=== PATIENT | female | born 1980 | race Caucasian/White ===

== ENCOUNTER 2023-09-02 09:10 | Emergency (ER) | payer OTHER, SELFPAY ==
[2023-09-02 09:12] VITALS: BP 133/99
--- NOTE | 2023-09-02 10:05 | ED.GENMED ---
History of Present Illness
General
Chief Complaint: Musculo-Skeletal Complaint
Source: patient
Exam Limitations: none
Time Seen by Provider: 09/02/23 09:29
Nursing documentation reviewed up to this point in time: agreed with
Travel History
Have you had any contact with someone who has COVID-19?: No
Do you have any symptoms of coronavirus? Fever > 100 degrees, chills, cough, shortness of breath, sore throat, loss of taste or smell, muscle aches, or headache?: No
History of Present Illness
History of Present Illness:
42 y/o F with h/o R shoulder pain that was yesteday when she woke up
she says she fell 2 mo ago and had pain with limited ROM for a day or two which resolved completely
spontaneously yesterday am she started with pain and limited painful ROM. throughout the day th epain got progressively worse
pt didn't sleep last night becuase of th epain
she took motrin 200 mg at 6 am today. she has not had any relief
the pain is mostly in the shoulder but sometimes radiates to RUE
she has no joão any swelling, numbness/tingling/color change, weakness
no cp, sob
no repetitve use or lifting injuries.
r hand dominant
Past History
Past History
ED Past Medical History: Other (pelvic congestion syndrome)
Social History
Tobacco: Non-smoker
Alcohol: None
Drug: None
Personal:
Living: with family
Review of Systems
Review of Systems
Allergies reviewed?: Yes
All Other Systems: Not applicable
Phy Exam
Physical Exam
Physical Exam:
GENERAL: Alert , in no apparent distress, comfortable at rest
HEAD: NCAT
CV lungs and heart clear
NEUROLOGICAL: Alert and oriented, no focal neuro deficits, , 5/5 strength, sensation intact,
SKIN: Warm and dry, skin normal appearance
MUSCULOSKELETAL: normal inspection R shoulder and RUE
tender humeral head in the shoulder
very limited painful ROM
normal distal neuro/vascular exam
slightly tender biceps
no defect
strength and sensation intact
PSYCH: Normal and appropriate interaction.
Course
Orders/Labs/Results
Orders:
Orders
09/02/23 09:15
CR Shoulder - Right Min 2 View Urgent
Comment:
Reason For Exam: pain
Vital Signs
Initial and Last Documented VS:
Initial Vital Signs
Temp Pulse Resp BP Pulse Ox
98.3 F 102 16 133/99 98
09/02/23 09:12 09/02/23 09:12 09/02/23 09:12 09/02/23 09:12 09/02/23 09:12
Last Documented Vital Signs
Temp Pulse Resp BP Pulse Ox
98.3 F 102 16 133/99 98
09/02/23 09:12 09/02/23 09:12 09/02/23 09:12 09/02/23 09:12 09/02/23 09:12
MDM/Problems Addressed
Differential Diagnosis Includes:
calcific tendinitis
MDM/Problems Addressed:
42 y/o F with no sgi pmh
here with R shoulder pain, no injuryu
had injury 2 mo ago but no evlauation
has not had pain since yesterday
now very limited painful ROM
tried ice and small dose of motrin 200 mg becuase sh e was unaware that she could take more
normal inspection
limited painful rom but i can passively range her
no redness
nv exa,m normal
xray indep reviewed by me and shows calficiation sc/w calcific tendinitis
which makes sense for how painful/abrupt this was
nsaids 600 mg tid
vicodin prn severe pain
ortho
*Critical Care Note
Total Time (30-74mins, 75-104mins- exclusive of procedures): Not Applicable
ED Attending Note
-
Portions of this chart may have been created with voice recognition software.� Occasional wrong word or��sound alike� substitutions may have occurred due to the inherent limitations of voice recognition software.
Discharge Plan
Departure
Patient Disposition: Home (Routine Discharge)
Date of Disposition: 09/02/23
Time of Disposition: 10:13
Patient with high blood pressure during this ER visit?: No
Condition: Fair
Covid-19: Not Applicable
Discharge Problem:
Calcific tendinitis of right shoulder
Instructions: Calcific Tendinopathy of the Shoulder (DC)
Prescriptions:
New
ibuprofen 600 mg tablet
600 mg PO Q8H PRN (Reason: Pain) Qty: 20 0RF
hydrocodone-acetaminophen 5-325 mg tablet
1 tab PO BID PRN (Reason: Pain) Qty: 7 0RF
No Action
tamsulosin [Flomax] 0.4 mg capsule
0.4 mg PO DAILY Qty: 14 0RF
Referrals:
Armond Ayala DO [Family Provider] -
Jarrell Nieto MD [Active] - Follow up in 5-7 days (ortho)
Activity Restrictions/Additional Instructions:
Your pain is likely due to calcific tendinitis of your shoulder. You can take ibuprofen 600 mg 1 tablet every 8 hours with food for 3 to 5 days in a row for the inflammation. I sent a prescription for this to your pharmacy. I also sent a
prescription for hydrocodone/Tylenol 1 tablet can be taken twice a day as needed for severe pain. If you do not have severe pain you can avoid this. It is a narcotic so do not drive or drink alcohol on it. Make sure to follow-up with orthopedics,
call on Monday for an appointment. Return to the ER for swelling of the arm, redness or warmth, fever or chills, severe pain or any concerns
Interventions
Interventions:
*Risk Screen - Suicide Last Done: 09/02/23 09:12
*General Assessment Last Done: 09/02/23 09:12
*Neglect/Abuse Screening Last Done: 09/02/23 09:12
*Nursing Disposition Last Done: 09/02/23 11:25
ED-Musculoskeletal Assessment Last Done: 09/02/23 11:20
Discharge Date and Time
Discharge Date/Time: 09/02/23 11:26
== END 2023-09-02 11:26 | disposition home or self-care (01) ==
LOC: EMR 09:10
PROVIDERS: EMERGENCY PHYSICIAN Emergency Medicine; FAMILY PHYSICIAN Family Medicine
DX: M75.31 Calcific tendinitis of right shoulder (principal); N94.89 Other specified conditions associated with female genital organs and menstrual cycle
CPT/HCPCS: 99283; 73030

== ENCOUNTER → 2024-02-20 15:52 | Outpatient (REF) | payer OTHER, SELFPAY | LOC: HWRAD 15:52 | PROVIDERS: ATTENDING PHYSICIAN Internal Medicine Rheumatology; FAMILY PHYSICIAN Family Medicine; REFERRING PHYSICIAN Psychiatry & Neurology Neurology | DX: M13.0 Polyarthritis, unspecified (principal) | CPT/HCPCS: 72114; 72202; 73522 ==

== ENCOUNTER 2024-03-29 13:50 | Outpatient (RCR) | payer OTHER, SELFPAY | END 2024-03-29 23:59 | disposition home or self-care (01) | LOC: RPT 13:50 | PROVIDERS: ATTENDING PHYSICIAN Family Medicine | DX: R60.0 Localized edema (principal); N94.89 Other specified conditions associated with female genital organs and menstrual cycle; Z73.6 Limitation of activities due to disability | CPT/HCPCS: 97140; 97162; 97535 ==

== ENCOUNTER 2024-04-16 13:01 | Outpatient (RCR) | payer OTHER, SELFPAY | END 2024-04-16 23:59 | disposition home or self-care (01) | LOC: RPT 13:01 | PROVIDERS: ATTENDING PHYSICIAN Obstetrics & Gynecology Female Pelvic Medicine and Reconstructive Surgery; FAMILY PHYSICIAN Family Medicine | DX: N81.2 Incomplete uterovaginal prolapse (principal); N94.89 Other specified conditions associated with female genital organs and menstrual cycle; R60.9 Edema, unspecified; Z73.6 Limitation of activities due to disability; M62.81 Muscle weakness (generalized) | CPT/HCPCS: 97110; 97140; 97163; 97530 ==

== ENCOUNTER 2024-05-14 14:11 | Outpatient (RCR) | payer OTHER, SELFPAY | END 2024-05-14 23:59 | disposition home or self-care (01) | LOC: RPT 14:11 | PROVIDERS: ATTENDING PHYSICIAN Obstetrics & Gynecology Female Pelvic Medicine and Reconstructive Surgery; FAMILY PHYSICIAN Family Medicine | DX: N81.2 Incomplete uterovaginal prolapse (principal); N94.89 Other specified conditions associated with female genital organs and menstrual cycle; R60.9 Edema, unspecified; Z73.6 Limitation of activities due to disability; M62.81 Muscle weakness (generalized) | CPT/HCPCS: 97014; 97110; 97112; 97530 ==

== ENCOUNTER 2024-06-19 06:15 | Outpatient (RCR) | payer OTHER, SELFPAY | END 2024-06-19 23:59 | disposition home or self-care (01) | LOC: RPT 06:15 | PROVIDERS: ATTENDING PHYSICIAN Obstetrics & Gynecology Female Pelvic Medicine and Reconstructive Surgery; FAMILY PHYSICIAN Family Medicine | DX: N81.2 Incomplete uterovaginal prolapse (principal); N94.89 Other specified conditions associated with female genital organs and menstrual cycle; R60.9 Edema, unspecified; Z73.6 Limitation of activities due to disability; M62.81 Muscle weakness (generalized) | CPT/HCPCS: 97014; 97110; 97112; 97140; 97530 ==

== ENCOUNTER 2024-07-17 06:23 | Outpatient (RCR) | payer OTHER, SELFPAY | END 2024-07-17 23:59 | disposition home or self-care (01) | LOC: RPT 06:23 | PROVIDERS: ATTENDING PHYSICIAN Obstetrics & Gynecology Female Pelvic Medicine and Reconstructive Surgery; FAMILY PHYSICIAN Family Medicine | DX: N81.2 Incomplete uterovaginal prolapse (principal); N94.89 Other specified conditions associated with female genital organs and menstrual cycle; R60.9 Edema, unspecified; Z73.6 Limitation of activities due to disability; M62.81 Muscle weakness (generalized) | CPT/HCPCS: 97014; 97110; 97530 ==

== ENCOUNTER 2024-08-14 08:24 | Outpatient (RCR) | payer OTHER, SELFPAY | END 2024-08-14 23:59 | disposition home or self-care (01) | LOC: RPT 08:24 | PROVIDERS: ATTENDING PHYSICIAN Obstetrics & Gynecology Female Pelvic Medicine and Reconstructive Surgery; FAMILY PHYSICIAN Family Medicine | DX: N81.2 Incomplete uterovaginal prolapse (principal); N94.89 Other specified conditions associated with female genital organs and menstrual cycle; R60.9 Edema, unspecified; Z73.6 Limitation of activities due to disability; M62.81 Muscle weakness (generalized) | CPT/HCPCS: 97014; 97110; 97112; 97530 ==

== ENCOUNTER → 2024-11-05 07:59 | Outpatient (REF) | payer OTHER, SELFPAY | LOC: HWWDC 07:59 | PROVIDERS: ATTENDING PHYSICIAN Family Medicine | DX: Z12.31 Encounter for screening mammogram for malignant neoplasm of breast (principal) | CPT/HCPCS: 77063; 77067 ==

== ENCOUNTER → 2025-01-27 13:37 | Outpatient (REF) | payer OTHER, SELFPAY | LOC: WDC 13:37 | PROVIDERS: ATTENDING PHYSICIAN Obstetrics & Gynecology Gynecology; FAMILY PHYSICIAN Family Medicine | DX: R92.30 Dense breasts, unspecified (principal) | CPT/HCPCS: 76641 ==